=== PATIENT | male | born 2000 | race Two or more races ===

== ENCOUNTER 2020-12-25 22:44 | Emergency (ER) | payer OTHER ==
[~2020-12-25] VITALS: Ht 170.2 cm; Wt 71.7 kg
== END 2020-12-26 07:54 | disposition home or self-care (01) ==
LOC: ER 22:44 → EMR PED 22:44
DX: N50.812 Left testicular pain (principal); N50.811 Right testicular pain

== ENCOUNTER → 2021-02-19 11:55 | Outpatient (CLI) | payer OTHER | END | disposition home or self-care (01) | LOC: LAB 11:55 | PROVIDERS: ATTEND Obstetrics & Gynecology | DX: Z20.818 Contact with and (suspected) exposure to other bacterial communicable diseases (principal); Z20.828 Contact with and (suspected) exposure to other viral communicable diseases ==